=== PATIENT | female | born 1955 | race Caucasian/White ===

== ENCOUNTER → 2020-06-26 | Day surgery (SDC) | payer MEDICARE, BC ==
[2020-06-20 16:04] LABS: CLARITY,URINE CLEAR (Clear); COLOR,URINE YELLOW (Yellow); GLUCOSE, URINE NEGATIVE (Neg); KETONES,URINE NEGATIVE (Neg); LEUKOCYTE ESTERASE ,URINE TRACE (Neg); NITRITES, URINE NEGATIVE (Neg); OCCULT BLOOD,URINE NEGATIVE (Neg); PH,URINE 5.5 (4.8-8.0); PROTEIN,URINE NEGATIVE (Neg); UROBILINOGEN,URINE 0.2 E.U/dL (0.2-1.0)
[2020-06-20 16:06] LABS: BASOPHILS % (AUTO) 0.6 % (0-1); EOSINOPHILS # (AUTO) 0.1 X10'3 (0-0.9); LYMPHOCYTES # (AUTO) 1.7 X10'3 (1.1-4.8); LYMPHOCYTES % (AUTO) 23.4 % (21-51); MEAN CORPUSCULAR HEMOGLOBIN 26.7 PG (27.0-31.0); MEAN CORPUSCULAR HGB CONC 31.6 g/dL (33.0-36.5); MEAN CORPUSCULAR VOLUME 84.6 FL (78-98); MEAN PLATELET VOLUME 8.6 FL (7.4-10.4); MONOCYTES # (AUTO) 0.8 X10'3 (0-0.9); MONOCYTES % (AUTO) 10.9 % (2-12); NEUTROPHILS # (AUTO) 4.6 X10'3 (1.8-7.7); NEUTROPHILS % (AUTO) 64.1 % (42-75); PRE OP HEMATOCRIT 35.7 % (35.0-45.0); PRE OP HEMOGLOBIN 11.3 g/dL (12.0-16.0); PRE OP PLATELET COUNT 387 X10'3 (140-440); RED BLOOD COUNT 4.21 X10'6 (4.20-5.60); RED CELL DISTRIBUTION WIDTH 15.2 % (11.5-14.5)
[2020-06-20 16:07] LABS: UA COLLECTION TYPE CLN CATCH MIDSTREAM
[2020-06-20 16:17] LABS: BACTERIA,URINE 1+ /HPF (Neg); MUCUS STRANDS MODERATE /LPF (Neg); RBC,URINE NONE SEEN /HPF (0-2); RENAL CELLS, URINE FEW /HPF; SQUAMOUS EPITHELIAL CELL,UR MODERATE /LPF (FEW); WBC,URINE 0-4 /HPF (0-4)
[2020-06-20 16:21] LABS: ALBUMIN 3.6 G/DL (3.4-5.0); ALBUMIN/GLOBULIN RATIO 0.9 (1.1-1.5); ALKALINE PHOSPHATASE 140 IU/L (46-116); BLOOD UREA NITROGEN 29 MG/DL (7-18); BUN/CREATININE RATIO 35.8 (6.6-38.0); CALCIUM 9.1 MG/DL (8.5-10.1); CHLORIDE 104 MMOL/L (99-107); CREATININE 0.81 MG/DL (0.40-0.90); PRE OP ALT 26 U/L (30-65); PRE OP ANION GAP 11 (8-16); PRE OP AST 23 U/L (10-37); PRE OP BILIRUB, TOTAL 0.3 MG/DL (0.0-1.0); PRE OP GLUCOSE 100 MG/DL (70-104); PRE OP POTASSIUM 4.1 MMOL/L (3.4-5.1); PRE OP SODIUM 143 MMOL/L (135-145); TOTAL CARBON DIOXIDE 28.4 MMOL/L (24-32); TOTAL PROTEIN 7.4 G/DL (6.4-8.2); eGFR 71 ML/MIN
[~2020-06-26] VITALS: Ht 170.2 cm; Wt 113.0 kg
[2020-06-26] VITALS (10 sets, daily range): BP systolic 116–141; BP diastolic 62–87
[~2020-06-26] MED LIST: CARV3.122 PO; CYAN250010 PO; DOCUMENT DATE & TIME OF BETA-BLOCKER PO ONE; FLUO40CA PO; FOLI0.4T14 PO; HYDROcodone/acetaminophen 5mg/325mg tablet PO ONE; LEVO200T8 PO; LIDOcaine 2% (20mg/ml) 5ml vial ONE; PYRI100L2 PO; RIVA20TA PO; SACU1TAB PO; THIA100T70 PO; ceFOXitin 2GM-NS 100mL ADDvant 100 ML IV ONE; dexamethasone sod phosphate 4mg/ml inj. ONE; famotidine 20mg tablet PO ONE; fentaNYL/PF 50MCG/1 ML 2ML syringe ONE; meperidine/PF 25mg/ml syringe IV PRN; midazolam 1 mg/ML 2ml injection ONE; morphine 2 MG/ML inj. syringe IV PRN; morphine 4 MG/ML inj SYRINge IV PRN; ondansetron/PF 4mg/2ml inj IV PRN; ondansetron/PF 4mg/2ml inj ONE; proCHLORperazine 10 MG/2 ml inj IV PRN; propofol inj 20 ML IV ONE; ringers solution, lacted 1,000 ML IV SCH
--- NOTE | 2020-06-26 18:05 | NUR ---
Received from OR via [facility], accompanied by Anesthesiologist DR MARTÍNEZ and report given by Anesthesiolgist. PT HAS PIV 20G L HAND WITH LR RUNNING AT 100 MLS/HR. VSS. Addendum: 06/26/20 at 1818 by Марина Blanc RN, RN Amended: Links added.
--- NOTE | 2020-06-26 19:00 | NUR ---
PT PAIN 06/16. DR MAXWELL CALLED AND GAVE VERBAL FOR KRISTOPHER [phone]. Addendum: 06/26/20 at 3 by Марина Blanc RN, RN Amended: Links added.
--- NOTE | 2020-06-26 19:15 | NUR ---
ALL DISCHARGE CRITERIA HAS BEEN MET. VSS, PAIN AT A TOLERABLE LEVEL, VOIDING AND ABLE TO SAFELY AMBULATE AND TRANSFER SELF. IV TAKEN OUT WITHOUT ANY COMPLICATIONS. ALL DISCHARGE INSTRUCTIONS COVERED WITH PATIENT AND ALL QUESTIONS ANSWERED. PATIENT TAKEN OUT VIA WHEELCHAIR TO PERSONAL VEHICLE WHERE FAMILY/FRIEND DROVE PATIENT HOME. BELEM PAD WITH NO DRAINAGE ON IT, HOSPITAL UNDERWEAR GIVEN TO PT TO HOLD PAD IN PLACE. DC INSTRUCTIONS REVIEWED WITH PT, PT TO STOP TAKING LOVENOX AND CONTINUE WITH HOME MEDS. PT VERBALIZED UNDERSTANDING WITH NO FURTHER QUESTIONS AT THIS TIME. Addendum: 06/26/20 at 3 by Марина Blanc RN, RN Amended: Links added.
== END | disposition home or self-care (01) ==
LOC: PAS 13:45
PROVIDERS: ATTEND Obstetrics & Gynecology Obstetrics
DX: N95.0 Postmenopausal bleeding (principal); N85.00 Endometrial hyperplasia, unspecified; N84.0 Polyp of corpus uteri; I11.0 Hypertensive heart disease with heart failure; I50.9 Heart failure, unspecified; M19.90 Unspecified osteoarthritis, unspecified site; F32.9 Major depressive disorder, single episode, unspecified; G43.909 Migraine, unspecified, not intractable, without status migrainosus; M81.0 Age-related osteoporosis without current pathological fracture; E66.9 Obesity, unspecified; Z68.36 Body mass index [BMI] 36.0-36.9, adult; Z98.84 Bariatric surgery status; Z98.890 Other specified postprocedural states; Z87.891 Personal history of nicotine dependence; Z86.718 Personal history of other venous thrombosis and embolism; Z86.711 Personal history of pulmonary embolism; Z79.01 Long term (current) use of anticoagulants; Z79.899 Other long term (current) drug therapy; Z82.49 Family history of ischemic heart disease and other diseases of the circulatory system; Z83.3 Family history of diabetes mellitus
CPT/HCPCS: 36415; 58558; 71046; 80053; 81001; 82948; 85025; 86885; 86900; 86901; 87088; J0694; J1100; J2001; J2250; J2405; J2704; J3010; J7030; A4355; A4618; A6258; J7120